=== PATIENT | male | born 1980 | race Caucasian/White ===

== ENCOUNTER 2021-01-03 21:28 | Inpatient (IN) | payer OTHER ==
[2021-01-03 21:35] VITALS: BMI 33.6
[2021-01-03 23:53] LABS: BASO % 0.5 % (0-2.0); EOS % 0.7 % (0-4.5); HEMATOCRIT 46.3 % (35.4-49); HEMOGLOBIN 16.1 GM/dL (11.7-16.9); LYMPH % 28.4 % (8-40); MCHC 34.8 g/dl (32.0-35.9); MEAN CELL VOLUME 86.3 fl (80-96); MEAN PLT VOLUME 7.9 fl (7.5-11.1); MONO % 8.4 % (3.8-10.2); PLATELET COUNT 290 10^3/uL (134-434); RBC 5.36 M/mm3 (4.00-5.60); RDW 12.9 % (11.9-15.9); WHITE BLOOD COUNT 10.7 K/mm3 (4.0-10.0)
[2021-01-04 00:03] LABS: INR 1.03 (0.83-1.09); PROTHROMBIN TIME (PATIENT) 11.5 SEC (9.7-13.0)
[2021-01-04 00:06] LABS: ACTIVATED PTT 29.5 SECONDS (25.2-36.5)
[2021-01-04 00:11] LABS: CHLORIDE 104 mmol/L (98-107); SODIUM 140 mmol/L (136-145)
[2021-01-04 00:13] LABS: CALCIUM 8.9 mg/dL (8.5-10.1)
[2021-01-04 00:14] LABS: ALBUMIN 4.3 g/dl (3.4-5.0); ANION GAP 7 MMOL/L (8-16); BLOOD UREA NITROGEN 18.2 mg/dL (7-18); CO2 29 mmol/L (21-32); GLUCOSE,RANDOM 120 mg/dL (74-106)
[2021-01-04 00:17] LABS: CREATININE 1.3 mg/dL (0.55-1.3); SGOT/AST 42 U/L (15-37); SGPT/ALT 43 U/L (13-61)
[2021-01-04 00:18] LABS: BILIRUBIN,TOTAL 2.9 mg/dL (0.2-1)
[2021-01-04 00:20] LABS: ALK PHOS 48 U/L (45-117)
[2021-01-04] MEDS ORDERED: ACETAMINOPHEN 325 MG TABLET (FP) PO PRN (03:52)
[2021-01-04 03:55] LABS: ERYTHROCYTE SEDIMENTATION RATE 4 mm/hr (0-10)
[2021-01-04] MEDS ORDERED: SODIUM CHLORIDE 1,000 ML IV SCH (04:00)
[2021-01-04] MEDS ORDERED: ASPIRIN 325 MG TABLET PO ONE (04:09)
[2021-01-04] MEDS ORDERED: CLOPIDOGREL BISULFATE 75 MG TABLET (FP) ONE ×2 (04:28→08:22)
[2021-01-04] MEDS ORDERED: ASPIRIN 325 MG ENTERIC COATED TABLET (FP) ONE (04:28)
[2021-01-04] MEDS ORDERED: METOPROLOL TARTRATE 50 MG TABLET (FP) ONE ×2 (04:28→08:22)
[2021-01-04] MEDS: CLOPIDOGREL BISULFATE 75 MG TABLET (FP) PO SCH ×2 (04:34→09:05)
[2021-01-04] MEDS: METOPROLOL TARTRATE 50 MG TABLET (FP) PO SCH ×3 (04:34→21:50)
[2021-01-04] MEDS ORDERED: MELATONIN 5 MG TABLETS PO PRN (04:58)
[2021-01-04 06:32] LABS: BASO % 0.8 % (0-2.0); EOS % 0.7 % (0-4.5); HEMOGLOBIN 15.1 GM/dL (11.7-16.9); MCH 30.5 pg (25.7-33.7); MCHC 34.3 g/dl (32.0-35.9); MONO % 7.6 % (3.8-10.2); NEUT % 64.9 % (42.8-82.8); PLATELET COUNT 259 10^3/uL (134-434); RBC 4.95 M/mm3 (4.00-5.60); RDW 13.1 % (11.9-15.9); WHITE BLOOD COUNT 8.9 K/mm3 (4.0-10.0)
[2021-01-04 06:48] LABS: CALCIUM 8.5 mg/dL (8.5-10.1)
[2021-01-04 06:49] LABS: ALBUMIN 3.7 g/dl (3.4-5.0); BLOOD UREA NITROGEN 16.9 mg/dL (7-18); MAGNESIUM 2.3 mg/dL (1.8-2.4)
[2021-01-04 06:52] LABS: CREATININE 1.3 mg/dL (0.55-1.3); PHOSPHOROUS 3.6 mg/dL (2.5-4.9)
[2021-01-04 06:54] LABS: BILIRUBIN,TOTAL 2.3 mg/dL (0.2-1); TOT PROT 7.3 g/dl (6.4-8.2)
[2021-01-04 06:56] LABS: CHOLESTEROL 172 mg/dL (50-200)
[2021-01-04 06:57] LABS: LDL CHOLESTEROL (ONLY SJRH) 117 mg/dL (5-100); TRIGLYCERIDES 93 mg/dL (0-150)
[2021-01-04 07:00] LABS: HDL CHOLESTEROL 38 mg/dL (40-60)
[2021-01-04] MEDS ORDERED: ASPIRIN 81 MG CHEWABLE TABLETS ONE (08:21)
[2021-01-04] MEDS ORDERED: LEVOTHYROXINE NA 25 MCG TABLET (FP) ONE (08:22)
[2021-01-04] MEDS ORDERED: LOSARTAN POTASSIUM 50 MG TABLET ONE (08:22)
[2021-01-04] MEDS ORDERED: ENOXAPARIN NA (PORCINE) 40 MG/0.4 ML DISP.SYRIN SQ ONE (08:22)
[2021-01-04] MEDS: LACTATED RINGERS SOLUTION 1,000 ML/1,000 ML INFUS.BAG IV SCH ×2 (09:05→23:30)
[2021-01-04] MEDS: LEVOTHYROXINE NA 100 MCG TABLET (FP) PO SCH (09:06)
[2021-01-04] MEDS: LOSARTAN POTASSIUM 50 MG TABLET PO SCH (09:06)
[2021-01-04] MEDS: ENOXAPARIN NA (PORCINE) 40 MG/0.4 ML DISP.SYRIN SQ SCH (09:06)
[2021-01-04] MEDS ORDERED: ENOXAPARIN NA (PORCINE) 120 MG/0.8 ML DISP.SYRIN SQ SCH (10:00)
[2021-01-04] MEDS ORDERED: ENOXAPARIN NA (PORCINE) 40 MG/0.4 ML DISP.SYRIN SQ SCH (10:00)
[2021-01-04] MEDS ORDERED: ASPIRIN 81 MG CHEWABLE TABLETS PO SCH (10:00)
[2021-01-05] MEDS: LEVOTHYROXINE NA 100 MCG TABLET (FP) PO SCH (06:35)
[2021-01-05 08:17] VITALS: BP 106/85; PULSE 67; TEMP 97.7
[2021-01-05] MEDS: METOPROLOL TARTRATE 50 MG TABLET (FP) PO SCH (09:12)
[2021-01-05] MEDS: LOSARTAN POTASSIUM 50 MG TABLET PO SCH (09:13)
[2021-01-05] MEDS: ENOXAPARIN NA (PORCINE) 40 MG/0.4 ML DISP.SYRIN SQ SCH (09:13)
== END 2021-01-05 16:47 | disposition home or self-care (01) | DRG 313 ==
LOC: JER 21:28 → JERBED 01-04 02:50 → OBSVTOIN 01-04 03:53 → J4W 01-04 14:53
PROVIDERS: ATTEND Internal Medicine
DX: R07.89 Other chest pain (principal); M62.82 Rhabdomyolysis; R00.0 Tachycardia, unspecified; M60.9 Myositis, unspecified; E03.9 Hypothyroidism, unspecified; R00.2 Palpitations; I10 Essential (primary) hypertension; E66.9 Obesity, unspecified; Z68.33 Body mass index [BMI] 33.0-33.9, adult
CPT/HCPCS: 36415; 71046-TC-FY; 76700-TC; 80053; 80061; 82550; 82553; 83036; 83690; 83735; 84100; 84443; 84484; 85025; 85379; 85610; 85651; 85730; 87804; 93005; 93010; 99285-25; C9803; G0378; U0003; U0005